=== PATIENT | female | born 1950 | race Caucasian/White ===

== ENCOUNTER 2022-12-10 08:14 | Day surgery (SDC) | payer OTHER, BC ==
[2022-12-09 13:44] VITALS: BMI 22.3
[2022-12-10] MEDS: PHENYLEPHRINE 2.5% OPTHALMIC DROP 2ML BOTTLE ONE ×3 (08:45→08:55)
[2022-12-10] MEDS: CYCLOPENTOLATE 2% OPHTH SOLN 2 ML BOTTLE ONE ×3 (08:45→08:55)
[2022-12-10] MEDS: CIPROFLOXACIN 0.3% EYE DROPS 5 ML BOTTLE ONE ×3 (08:45→08:55)
[2022-12-10] MEDS: TROPICAMIDE 1% OPHTH SOLN 15 ML BOTTLE ONE ×3 (08:45→08:55)
[2022-12-10 08:50] VITALS: RESP 16
[2022-12-10] MEDS ORDERED: NEO/POLYMYX B SULF/DEXAMETH OPHTHALMIC 5ML BOTTLE ONE (08:52)
[2022-12-10] MEDS ORDERED: LIDOCAINE 1% P/F 10 MG/ML VIAL ONE (08:52)
[2022-12-10] MEDS ORDERED: CARBACHOL 0.01% INTRA-OCULAR 1.5 ML VIAL ONE (08:52)
[2022-12-10] MEDS ORDERED: TETRACAINE 0.5% OPHTH SOLN 2 ML BOTTLE ONE (08:52)
[2022-12-10] MEDS ORDERED: BSS (NA/CA/MG/K) BALANCED SALT SOLUTION OPHTH SOLN 15 ML BOTTLE ONE (08:52)
[2022-12-10] MEDS ORDERED: MIDAZOLAM HCL 2 MG/2 ML SINGLE DOSE VIAL ONE ×2 (10:19→10:30)
[2022-12-10] MEDS ORDERED: KETOROLAC TROMETHAMINE 30 MG/1 ML VIAL ONE (10:29)
[2022-12-10 11:11] VITALS: TEMP 98.1
[2022-12-10 11:37] VITALS: BP 139/76; PULSE 66
== END 2022-12-10 11:35 | disposition home or self-care (01) ==
LOC: FASU 08:14
PROVIDERS: ATTEND Ophthalmology
PROC: 08RJ3JZ Replacement of Right Lens with Synthetic Substitute, Percutaneous Approach (ICD-10-PCS; principal; 2022-12-10 10:27)
DX: H26.8 Other specified cataract (principal)
CPT/HCPCS: 66984; V2632

== ENCOUNTER 2023-01-14 06:40 | Day surgery (SDC) | payer OTHER, BC ==
[2023-01-09 17:27] VITALS: BMI 22.3
[2023-01-14] MEDS: TROPICAMIDE 1% OPHTH SOLN 15 ML BOTTLE ONE ×3 (07:00→07:10)
[2023-01-14] MEDS: CYCLOPENTOLATE 2% OPHTH SOLN 2 ML BOTTLE ONE ×3 (07:00→07:10)
[2023-01-14] MEDS: CIPROFLOXACIN 0.3% EYE DROPS 5 ML BOTTLE ONE ×3 (07:00→07:10)
[2023-01-14] MEDS: PHENYLEPHRINE 2.5% OPTHALMIC DROP 2ML BOTTLE ONE ×3 (07:00→07:10)
[2023-01-14] MEDS ORDERED: LIDOCAINE 1% P/F 10 MG/ML VIAL ONE (07:15)
[2023-01-14] MEDS ORDERED: NEO/POLYMYX B SULF/DEXAMETH OPHTHALMIC 5ML BOTTLE ONE (07:15)
[2023-01-14] MEDS ORDERED: BSS (NA/CA/MG/K) BALANCED SALT SOLUTION OPHTH SOLN 15 ML BOTTLE ONE (07:15)
[2023-01-14] MEDS ORDERED: CARBACHOL 0.01% INTRA-OCULAR 1.5 ML VIAL ONE (07:15)
[2023-01-14] MEDS ORDERED: TETRACAINE 0.5% OPHTH SOLN 2 ML BOTTLE ONE (07:15)
[2023-01-14] MEDS ORDERED: MIDAZOLAM HCL 2 MG/2 ML SINGLE DOSE VIAL ONE ×2 (08:20→08:41)
[2023-01-14 09:03] VITALS: RESP 18
[2023-01-14 09:24] VITALS: BP 110/67; PULSE 77; TEMP 98
== END 2023-01-14 09:25 | disposition home or self-care (01) ==
LOC: FASU 06:40
PROVIDERS: ATTEND Ophthalmology
PROC: 08RK3JZ Replacement of Left Lens with Synthetic Substitute, Percutaneous Approach (ICD-10-PCS; principal; 2023-01-14 08:28)
DX: H26.8 Other specified cataract (principal)
CPT/HCPCS: 66984; V2632

== ENCOUNTER 2023-08-28 17:25 | Emergency (ER) | payer OTHER, BC ==
[2023-08-28 18:19] VITALS: BP 153/85; PULSE 85; RESP 18; TEMP 98.8; BMI 22.4
== END 2023-08-28 21:05 | disposition home or self-care (01) ==
LOC: FER 17:25
DX: S09.90XA Unspecified injury of head, initial encounter (principal); S60.212A Contusion of left wrist, initial encounter; M25.522 Pain in left elbow; W01.198A Fall on same level from slipping, tripping and stumbling with subsequent striking against other object, initial encounter
CPT/HCPCS: 70450-TC; 70486-TC; 72125-TC; 73070-TC-LT-FY; 99284-25

== ENCOUNTER 2024-08-13 17:09 | Emergency (ER) | payer OTHER, BC ==
[2024-08-13 17:30] VITALS: BMI 23.8
[2024-08-13 17:40] VITALS: BP 136/69; PULSE 77; RESP 16; TEMP 98.2
[2024-08-13 19:23] LABS: HEMATOCRIT 39.8 % (32.4-45.2); HEMOGLOBIN 12.6 G/dL (10.7-15.3); MCH 28.7 pg (25.7-33.7); MCHC 31.6 g/dl (32.0-36.0); MEAN CELL VOLUME 90.6 fl (80-96); MEAN PLT VOLUME 8.3 fl (7.5-11.1); PLATELET COUNT 326.1 10^3/uL (134-434); RBC 4.39 10^6/uL (3.60-5.2); RDW 16.2 % (11.6-15.6); WHITE BLOOD COUNT 13.1 10^3/uL (4.0-10.8)
[2024-08-13 19:29] LABS: PLATELET ESTIMATE ADEQUATE
[2024-08-13 19:43] LABS: ALBUMIN 4.2 g/dl (3.4-5.0); ALK PHOS 77 U/L (45-117); ANION GAP 11 mmol/L (4-13); BILIRUBIN,TOTAL 0.4 mg/dl (0.2-1); CALCIUM 9.5 mg/dl (8.5-10.1); CHLORIDE 99 mmol/L (98-107); CO2 25 mmol/L (21-32); GLUCOSE,RANDOM 107 mg/dl (74-106); POTASSIUM 3.8 mmol/L (3.5-5.1); SGOT/AST 14 U/L (15-37); SGPT/ALT 8 U/L (7-52); SODIUM 135 mmol/L (136-145); TOT PROT 7.3 g/dl (6.4-8.2)
== END 2024-08-13 20:35 | disposition home or self-care (01) ==
LOC: FER 17:09
PROC: 2W3CX1Z Immobilization of Right Lower Arm using Splint (ICD-10-PCS; principal; 2024-08-13)
DX: S52.591A Other fractures of lower end of right radius, initial encounter for closed fracture (principal); W01.198A Fall on same level from slipping, tripping and stumbling with subsequent striking against other object, initial encounter; Z20.822 Contact with and (suspected) exposure to COVID-19
CPT/HCPCS: 0241U-QW; 36415; 70450-TC; 72125-TC; 73110-TC-RT-FY; 73130-TC-RT-FY; 80053; 85025; 93005; 99285-25